=== PATIENT | male | born 1975 | race Caucasian/White ===

== ENCOUNTER 2024-05-03 14:06 | Emergency (ER) | payer OTHER, BC ==
[2024-05-03] MEDS ORDERED: Ondansetron ODT 4 MG TAB ONE (14:49)
[2024-05-03] MEDS ORDERED: Ketorolac Tromethamine 30 MG (1 mL) VIAL ONE (14:49)
[2024-05-03] MEDS ORDERED: Acetaminophen 500 MG TAB ONE (14:49)
[2024-05-03 17:44] LABS: Influenza A by NAA Not Detected (NotDetected); Influenza B by NAA Not Detected (NotDetected); SARS-CoV-2 NAA Rapid Test Not Detected (NotDetected)
== END 2024-05-03 15:50 | disposition home or self-care (01) ==
LOC: CSHERS 14:06
DX: R05.9 Cough, unspecified (principal); R50.9 Fever, unspecified
CPT/HCPCS: 71045; 96372; J1885; Q0162